=== PATIENT | male | born 1995 ===

== ENCOUNTER 2021-01-27 11:32 | Emergency (ER) | payer SELFPAY ==
--- NOTE | 2021-01-27 12:38 | RAD REPORT ---
EXAM DESCRIPTION: CT - Thorax Wo Con - 01/27/2021 12:21 pm CLINICAL HISTORY: Chest pain COMPARISON: none TECHNIQUE: Computed axial tomography of the chest was obtained. Contrast was not requested. All CT scans are performed using dose optimization technique as appropriate and may include automated exposure control or mA/KV adjustment according to patient size. FINDINGS: The evaluation of mediastinum, abdifatah and vessels is limited secondary to lack of IV contras t administration. The lungs are clear. No mediastinal or hilar lymphadenopathy is seen. A mediastinal hematoma is not present. A pleural effusion is not present. A pericardial effusion IMPRESSION: No acute abnormality displayed
--- NOTE | 2021-01-27 13:52 | ER ---
Nurse's Notes [facility] Name: Arthur Hazel Age: 25 yrs Sex: Male : 1995 Arrival Date: 01/27/2021 Time: 11:36 Bed 5 Private MD: Diagnosis: Other chest pain Presentation: 01/27 11:46 Chief complaint: Patient states: Chest pain off and on 2 weeks. I had a fall 2 weeks ca1 ago, landed on my back and knock the air out me. Chest pain been hurting progressively. Last 3 nights, been having back pain right in the middle. SOB with CP. Took Ibuprofen at 0800 today. Coronavirus screen: Client denies travel out of the [place] in the last 14 days. shortness of breath, Client presents with at least one sign or symptom that may indicate coronavirus-19. Standard/surgical mask placed on the client. Provider contacted for isolation considerations. Ebola Screen: Patient negative for fever greater than or equal to 101.5 degrees Fahrenheit, and additional compatible Ebola Virus Disease symptoms Patient denies exposure to infectious person. Patient denies travel to an Ebola-affected area in the 21 days before illness onset. No symptoms or risks identified at this time. Initial Sepsis Screen: Does the patient meet any 2 criteria? No. Patient's initial sepsis screen is negative. Does the patient have a suspected source of infection? No. Patient's initial sepsis screen is negative. Risk Assessment: Do you want to hurt yourself or someone else? Patient reports no desire to harm self or others. Onset of symptoms was January 27, 2021. 11:46 Method Of Arrival: Ambulatory ca1 11:46 Acuity: JABARI 3 ca1 Triage Assessment: 12:00 General: Appears distressed, uncomfortable, Behavior is cooperative, appropriate for bp age, anxious. Pain: Complains of pain in chest. EENT: No deficits noted. Neuro: No deficits noted. Cardiovascular: Reports chest pain. Respiratory: No deficits noted. GI: No signs and/or symptoms were reported involving the gastrointestinal system. : No signs and/or symptoms were reported regarding the genitourinary system. Derm: No deficits noted. Musculoskeletal: No deficits noted. Historical: - Allergies: 11:50 Sulfa (Sulfonamide Antibiotics); ca1 - Home Meds: 11:50 None [Active]; ca1 - PMHx: 11:50 None; ca1 - PSHx: 11:50 None; ca1 - Immunization history:: Client reports having NOT received the Covid vaccine. Flu vaccine is up to date. - Social history:: Smoking status: Patient denies any tobacco usage or history of. Patient/guardian denies using alcohol, street drugs, IV drugs. Screenin:51 Abuse screen: Denies threats or abuse. Denies injuries from another. Nutritional bp screening: No deficits noted. Tuberculosis screening: No symptoms or risk factors identified. Fall Risk None identified. Assessment: 12:00 General: SEE TRIAGE NOTE. bp 13:30 Reassessment: Patient appears in no apparent distress at this time. No changes from bp previously documented assessment. ALL CURRENT ORDERS COMPLETED. Pain: Pain does not radiate. 14:46 Reassessment: Patient and/or family updated on plan of care and expected duration. Pain bp level reassessed. PT D/C HOME AMBULATORY, DX WITH NON-CARDIAC CP. Vital Signs: 11:46 BP 126 / 79; Pulse 60; Resp 16 S; Temp 98.1(TE); Pulse Ox 99% on R/A; Weight 113.4 kg ca1 (R); Height 5 ft. 8 in. (172.72 cm) (R); Pain 10/10; 14:00 BP 129 / 71; Pulse 75; Resp 16; Pulse Ox 98% ; bp 15:00 BP 137 / 65; Pulse 65; Resp 16; Temp 98; Pulse Ox 99% ; bp 11:46 Body Mass Index 38.01 (113.40 kg, 172.72 cm) ca1 ED Course: 11:36 Patient arrived in ED. bp1 11:49 Triage completed. ca1 11:50 Arm band placed on right wrist. ca1 11:52 Margarito Cool PA is PHCP. jr8 11:52 Chacorta Davenport MD is Attending Physician. jr8 11:52 Noe Weiner, ANKUR is Primary Nurse. bp 11:58 EKG done, by ED staff, reviewed by Margarito CROOK. ds4 12:00 Patient has correct armband on for positive identification. Bed in low position. Call bp light in reach. Side rails up X2. child monitor on. Pulse ox on. NIBP on. 12:00 No provider procedures requiring assistance completed. Patient did not have IV access bp during this emergency room visit. Patient maintains SpO2 saturation greater than 95% on room air. 12:21 CT Chest Wo Con In Process Unspecified. EDMS Administered Medications: No medications were administered Outcome: 13:51 Discharge ordered by . nunu 14:54 Patient left the ED. ll1 15:05 Discharged to home ambulatory. bp 15:05 Condition: stable 15:05 Discharge instructions given to patient, Instructed on discharge instructions, follow up and referral plans. medication usage, Demonstrated understanding of instructions, follow-up care, medications, Prescriptions given X 1. Signatures: Dispatcher [employer] EDMS Margarito Cool PA PA jr8 Lewis Reynolds ds4 Noe Weiner RN RN bp Katie Croft RN RN ca1 Gemma Bruce RN RN ll1 Wanda Oneal bp1
--- NOTE | 2021-01-27 13:52 | EDPHYS ---
Physician Documentation [facility] Name: Arthur Hazel Age: 25 yrs Sex: Male : 1995 Arrival Date: 01/27/2021 Time: 11:36 Bed 5 Private MD: JAMES Physician Chacorta Davenport HPI: 01/27 13:47 This 25 yrs old Male presents to ER via Ambulatory with complaints of Chest Pain, Back jr8 Pain. 13:47 The patient or guardian reports chest pain that is located primarily in the substernal jr8 area. The pain does not radiate. Associated signs and symptoms: Pertinent positives: shortness of breath, back pain. The chest pain is described as sharp. Duration: The patient or guardian reports multiple episodes. Modifying factors: The symptoms are alleviated by nothing. the symptoms are aggravated by breathing, cough, deep breath, palpation of area. Severity of pain: At its worst the pain was moderate in the emergency department the pain is unchanged. The patient has not experienced similar symptoms in the past. The patient has not recently seen a physician. Patient stated that since he fell and landed on back causing him to loose his breath, he has had upper back pain and now chest pain with breathing and cough. Historical: - Allergies: 11:50 Sulfa (Sulfonamide Antibiotics); ca1 - Home Meds: 11:50 None [Active]; ca1 - PMHx: 11:50 None; ca1 - PSHx: 11:50 None; ca1 - Immunization history:: Client reports having NOT received the Covid vaccine. Flu vaccine is up to date. - Social history:: Smoking status: Patient denies any tobacco usage or history of. Patient/guardian denies using alcohol, street drugs, IV drugs. ROS: 13:47 Eyes: Negative for injury, pain, redness, and discharge, ENT: Negative for injury, jr8 pain, and discharge, Neck: Negative for injury, pain, and swelling, Respiratory: Negative for shortness of breath, cough, wheezing, and pleuritic chest pain, Abdomen/GI: Negative for abdominal pain, nausea, vomiting, diarrhea, and constipation, MS/Extremity: Negative for injury and deformity, Skin: Negative for injury, rash, and discoloration, Neuro: Negative for headache, weakness, numbness, tingling, and seizure. 13:47 Cardiovascular: Positive for chest pain, Negative for edema, orthopnea, palpitations, paroxysmal nocturnal dyspnea. 13:47 Back: Positive for pain at rest, pain with movement, Negative for radiated pain. Exam: 13:47 Neck: Trachea midline, no thyromegaly or masses palpated, and no cervical jr8 lymphadenopathy. Supple, full range of motion without nuchal rigidity, or vertebral point tenderness. No Meningismus. Cardiovascular: Regular rate and rhythm with a normal S1 and S2. No gallops, murmurs, or rubs. Normal PMI, no JVD. No pulse deficits. Respiratory: Lungs have equal breath sounds bilaterally, clear to auscultation and percussion. No rales, rhonchi or wheezes noted. No increased work of breathing, no retractions or nasal flaring. Abdomen/GI: Soft, non-tender, with normal bowel sounds. No distension or tympany. No guarding or rebound. No evidence of tenderness throughout. Skin: Warm, dry with normal turgor. Normal color with no rashes, no lesions, and no evidence of cellulitis. MS/ Extremity: Pulses equal, no cyanosis. Neurovascular intact. Full, normal range of motion. Neuro: Awake and alert, GCS 15, oriented to person, place, time, and situation. Cranial nerves II-XII grossly intact. Motor strength 5/5 in all extremities. Sensory grossly intact. Cerebellar exam normal. Normal gait. 13:47 Chest/axilla: Inspection: normal, Palpation: tenderness, that is mild, of the mid-sternal area, that partially reproduces the patient's complaints. 13:47 Back: pain, that is mild, of the thoracic area, ROM is painful, normal spinal alignment noted, CVA tenderness, is absent. Vital Signs: 11:46 BP 126 / 79; Pulse 60; Resp 16 S; Temp 98.1(TE); Pulse Ox 99% on R/A; Weight 113.4 kg ca1 (R); Height 5 ft. 8 in. (172.72 cm) (R); Pain 10/10; 14:00 BP 129 / 71; Pulse 75; Resp 16; Pulse Ox 98% ; bp 15:00 BP 137 / 65; Pulse 65; Resp 16; Temp 98; Pulse Ox 99% ; bp 11:46 Body Mass Index 38.01 (113.40 kg, 172.72 cm) ca1 MDM: 11:52 Patient medically screened. jr8 13:47 Data reviewed: vital signs, nurses notes, EKG, radiologic studies, CT scan. Data jr8 interpreted: Pulse oximetry: on room air is 99 %. Interpretation: normal. Counseling: I had a detailed discussion with the patient and/or guardian regarding: the historical points, exam findings, and any diagnostic results supporting the discharge/admit diagnosis, radiology results, the need for outpatient follow up, a family practitioner, to return to the emergency department if symptoms worsen or persist or if there are any questions or concerns that arise at home. 01/27 12:04 Order name: CT Chest Wo Con; Complete Time: 12:41 jr8 01/27 12:04 Order name: EKG; Complete Time: 12:05 jr8 01/27 12:04 Order name: EKG - Nurse/Tech; Complete Time: 12:04 jr8 Administered Medications: No medications were administered Disposition: 01/27/21 13:51 Discharged to Home. Impression: Other chest pain. - Condition is Stable. - Discharge Instructions: Chest Wall Pain. - Prescriptions for meloxicam 15 mg Oral tablet - take 1 tablet by ORAL route once daily As needed eat with food; 16 tablet. - Medication Reconciliation Form, Thank You Letter, Antibiotic Education, Prescription Opioid Use form. - Follow up: Private Physician; When: 1 week; Reason: Recheck today's complaints, Continuance of care, Re-evaluation by your physician. - Problem is new. - Symptoms have improved. Addendum: 01/29/2021 07:13 Co-signature as Attending Physician, Chacorta Davenport MD I agree with the assessment and c mcallister plan of care. Signatures: Dispatcher [employer] EDWY Chacorta Davenport MD MD cha Roszak, Josh, PA PA jr8 Katie Croft RN RN ca1 Gemma Bruce RN RN ll1 Corrections: (The following items were deleted from the chart) 01/27 14:54 13:51 01/27/2021 13:51 Discharged to Home. Impression: Other chest pain. Condition is ll1 Stable. Forms are Medication Reconciliation Form, Thank You Letter, Antibiotic Education, Prescription Opioid Use. Follow up: Private Physician; When: 1 week; Reason: Recheck today's complaints, Continuance of care, Re-evaluation by your physician. Problem is new. Symptoms have improved. jr8
[2021-01-27 15:17] VITALS: BP 126/79; TEMP 98.1; O2SAT 99
--- NOTE | 2021-01-28 10:48 | EKG ---
Test Date: 2021-01-27 Test Time: 11:55:02 Experimental Welder: XIOMARA MEASUREMENT RESULTS: Intervals: Rate: 66 AL: 124 QRSD: 94 QT: 392 QTc: 410 [place]: P: 26 AL: 124 QRS: 67 T: 53 INTERPRETIVE STATEMENTS: Normal sinus rhythm Normal ECG No previous ECG available for comparison Electronically Signed On 01-28-21 10:46:53 CDT by Lio Raza
== END 2021-01-27 14:54 | disposition home or self-care (01) ==
LOC: ER 11:32
DX: R07.89 Other chest pain (principal); M54.6 Pain in thoracic spine
CPT/HCPCS: 71250; 93005; 99285